=== PATIENT | female | born 1955 | race Caucasian/White ===

== ENCOUNTER 2020-09-03 11:09 | Emergency (ER) | payer OTHER ==
[~2020-09-03] VITALS: Ht 167.6 cm; Wt 68.0 kg
[2020-09-03 11:45] VITALS: BP 154/75
[2020-09-03] MEDS ORDERED: HYDR-4833 PO (12:20)
[2020-09-03] MEDS ORDERED: TRAM-297 PO ×2 (12:21→12:33)
[2020-09-03] MEDS ORDERED: HYDROcodone-ACET 5/325MG TAB PO ONE (12:45)
== END 2020-09-03 13:35 | disposition home or self-care (01) ==
LOC: ER 11:09
DX: S52.571A Other intraarticular fracture of lower end of right radius, initial encounter for closed fracture (principal); S60.222A Contusion of left hand, initial encounter; S20.212A Contusion of left front wall of thorax, initial encounter; Z88.2 Allergy status to sulfonamides; W01.0XXA Fall on same level from slipping, tripping and stumbling without subsequent striking against object, initial encounter; Y93.01 Activity, walking, marching and hiking; Y92.9 Unspecified place or not applicable; Y99.8 Other external cause status
CPT/HCPCS: 29125; 70450; 71101; 73130